=== PATIENT | male | born 1960 | race Caucasian/White ===

== ENCOUNTER 2018-08-30 11:19 | Day surgery (SDC) | payer BC ==
[2018-08-30] MEDS ORDERED: LIDOCAINE 2% (SDV) 5 ML INJ (14:06)
[2018-08-30] MEDS ORDERED: PROPOFOL 20 ML (14:06)
[2018-08-30] MEDS ORDERED: MIDAZOLAM 1 MG/ML 2 ML INJ (14:06)
== END 2018-08-30 17:44 | disposition home or self-care (01) ==
LOC: GIL 11:19
DX: Z12.11 Encounter for screening for malignant neoplasm of colon (principal); K64.8 Other hemorrhoids; J44.9 Chronic obstructive pulmonary disease, unspecified; Z80.0 Family history of malignant neoplasm of digestive organs
CPT/HCPCS: 45378